=== PATIENT | female | born 1975 | race Hispanic/Latino ===

== ENCOUNTER 2023-12-13 10:50 | Outpatient (CLI) | payer OTHER, SELFPAY ==
--- NOTE | ~2023-12-13 | MR_ITS ---
MR breast BI wo/w con 12/14/2023 07:52 CDT INDICATION: Palpable right breast lump. Left breast pain. No evidence for malignancy by diagnostic ma mmography or ultrasound. TECHNIQUE: MRI of the breasts perform using standard protocol pre-and post IV contrast with the follo wing sequences: Axial T2 STIR, axial T1, axial vibrant T1 with fat suppression precontrast and multip hasic postcontrast. 16 cc MultiHance administered intravenously. COMPARISON: Diagnostic mammogram and ultrasound report dated 10/17/2023 FINDINGS: Right breast: On precontrast sequence there is a T2 hypointense area in the upper inner fabi drant of the right breast at 1:00, middle third with rapid plateau enhancement measuring 10 x 10 x 8 mm. This mass is isointense on T1. There is marked background parenchymal enhancement. No evidence of signal abnormalities in the axillary or internal mammary node distributions. LEFT BREAST: There is marked background parenchymal enhancement. On precontrast sequence there is an oval T2 hypointense mass in the upper inner quadrant at 10:00, middle third measuring 1.8 x 0.6 x 0. 9 cm with rapid washout enhancement. In the left axilla there is an enlarged lymph node with loss of fatty hilum measuring 1.9 x 1.7 x 1 cm with rapid washout enhancement. In the lower inner quadrant at 7:00, middle third there is a precontrast T2 hypointense mass measuring 9 x 6 x 5 mm with rapid wash out enhancement. IMPRESSION: 1: Abnormal bilateral breast masses exhibiting enhancement in the right breast in the upper inner fabi drant, 1:00, middle third measuring 1 cm, left breast upper inner quadrant, 10:00, middle third measu ring 1.8 cm maximum dimension, left breast lower inner quadrant 7:00 middle third measuring 9 mm and left axilla with normal loss of fatty hilum measuring 1.9 cm. Correlation with prior diagnostic bilat eral mammogram recommended. Repeat complete bilateral breast ultrasound with attention to the areas o f MRI abnormality are recommended. BI-RADS CATEGORY 0 - INCOMPLETE STUDY, NEED ADDITIONAL IMAGING EVALUATION. Reviewed, dictated and finalized at location [facility]. [facility] signed by Damien Lane M.D. on 12/14/2023 8:10 CDT IMPRESSION: 1: Abnormal bilateral breast masses exhibiting enhancement in the right breast in the upper inner quadrant, 1:00, middle third measuring 1 cm, left breast upp er inner quadrant, 10:00, middle third measuring 1.8 cm maximum dimension, left breast lower inner quadrant 7:00 middle third measuring 9 mm and left axilla w ith normal loss of fatty hilum measuring 1.9 cm. Correlation with prior diagnos tic bilateral mammogram recommended. Repeat complete bilateral breast ultrasoun d with attention to the areas of MRI abnormality are recommended. BI-RADS CATEGORY 0 - INCOMPLETE STUDY, NEED ADDITIONAL IMAGING EVALUATION.
== END 2023-12-13 10:51 | disposition home or self-care (01) ==
LOC: ANHIMG 11:00
PROVIDERS: PCP Physician Assistant; Visit Provider Physician Assistant
DX: R92.8 Other abnormal and inconclusive findings on diagnostic imaging of breast (principal)
CPT/HCPCS: 77049; A9577; C8908